=== PATIENT | female | born 2000 | race Caucasian/White ===

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

== ENCOUNTER 2020-07-09 20:42 | Emergency (ER) | payer OTHER ==
[~2020-07-09 20:42] MED LIST: BLISOVI FE 1-21 EACH PO; WELLBUTRIN XL300 MG PO
== END 2020-07-09 21:22 | disposition left against medical advice (07) ==
LOC: ER 20:42
DX: R79.89 Other specified abnormal findings of blood chemistry (principal); Z53.21 Procedure and treatment not carried out due to patient leaving prior to being seen by health care provider